=== PATIENT | female | born 1960 ===

== ENCOUNTER 2016-12-27 15:10 | Emergency (ER) | payer SELFPAY ==
--- NOTE | 2016-12-27 15:18 | UC ---
Shoulder Pain HPI - HPI Summary HPI Summary: 56 YEAR OLD FEMALE PRESENTS WITH BILATERAL SHOULDER PAIN THAT STARTED WHILE AT WORK. - History of Current Complaint Stated Complaint: BILATERAL SHOULDER INJURY Time Seen by Provider: 12/27/16 15:18 Onset/Duration: Gradual Onset Timing: Constant Severity Initially: Moderate Severity Currently: Moderate Pain Scale Used: 0-10 Numeric - 5 Character: Sharp Aggravating Factor(s): Movement Alleviating Factor(s): Rest, Ice - Allergies/Home Medications Allergies/Adverse Reactions: Allergies Allergy/AdvReac Type Severity Reaction Status Date / Time No Known Allergies Allergy Verified 12/27/16 15:40 Home Medications: Home Medications Aspirin [Aspirin 81 MG TAB] 81 mg PO DAILY 12/27/16 [History Confirmed 12/27/16] DOXYcycline CAP(*) [DOXYcycline 100MG CAP(*)] 100 mg PO BID 12/27/16 [History Confirmed 12/27/16] Lisinopril TAB* [Prinivil TAB*] 5 mg PO DAILY 12/27/16 [History Confirmed ] Multiple Vitamins W/ Minerals [Multivitamin Adults 50+] 1 tab PO DAILY 12/27/16 [History Confirmed 12/27/16] Haskell-3 Fatty Acids [Fish Oil 500 mg] 1 cap PO DAILY 12/27/16 [History Confirmed 12/27/16] Omeprazole CAP* [Prilosec CAP* 20 MG] 20 mg PO DAILY 12/27/16 [History Confirmed 12/27/16] PMH/Surg Hx/FS Hx/Imm Hx Previously Healthy: Yes Review of Systems Constitutional: Negative Skin: Negative Eyes: Negative ENT: Negative Respiratory: Negative Cardiovascular: Negative Gastrointestinal: Negative Genitourinary: Negative Motor: Negative Neurovascular: Negative Musculoskeletal: Other: - BILATERAL SHOULDER PAIN Neurological: Negative Psychological: Negative All Other Systems Reviewed And Are Negative: Yes Physical Exam Triage Information Reviewed: Yes Eye Exam: Normal ENT Exam: Normal Dental Exam: Normal Neck exam: Normal Neck: Positive: 1 Respiratory Exam: Normal Cardiovascular Exam: Normal Abdominal Exam: Normal Musculoskeletal: Positive: Other: - BILATERAL SHOULDER PAIN Neurological Exam: Normal Psychological Exam: Normal Skin Exam: Normal Shoulder Course/Dx - Differential Dx/Diagnosis Provider Diagnoses: BILATERAL SHOULDER PAIN Discharge - Discharge Plan Condition: Stable Disposition: HOME Patient Education Materials: Shoulder Sprain (ED), Shoulder Pain (ED) Forms: *Work Release Referrals: No Primary Care Phys,NOPCP [Medical Doctor] -
[2016-12-27 15:49] VITALS: BP 119/61
== END 2016-12-27 16:16 | disposition home or self-care (01) ==
LOC: UCCORT 15:10
DX: M25.512 Pain in left shoulder (principal); M25.511 Pain in right shoulder
CPT/HCPCS: 99211; G0463